=== PATIENT | male | born 1975 | race African-American/Black ===

== ENCOUNTER 2019-09-06 13:22 | Emergency (ER) | payer OTHER ==
[~2019-09-06] VITALS: Ht 182.9 cm; Wt 100.0 kg
[2019-09-06 14:07] VITALS: BP 108/68
--- NOTE | 2019-09-06 14:12 | PHYS DOC ---
Adult General Chief Complaint Chief Complaint: FLU SYMPTOM HPI HPI Patient is a 44 year old male who presents with fever, body aches, cough since Thursday. He states he is not short of breath and has had no vomiting, diarrhea, chest pain, shortness of breath, headache, dizziness, numbness or tingling. He states been taking Tylenol and Mucinex. Last time to Tylenol with Thursday assuming took Mucinex was yesterday. He is a smoker. Denies any other past medical history. Denies any pain or discomfort at this time. Review of Systems Review of Systems Constitutional: fever or chills [] Respiratory: cough or denies shortness of breath [] All other systems were reviewed and found to be within normal limits, except as documented in this note. Allergies Allergies Allergies Coded Allergies Type Severity Reaction Last Updated Verified No Known Drug Allergies 09/06/19 No Physical Exam Physical Exam Constitutional: Well developed, well nourished, no acute distress, non-toxic appearance. [] HENT: Normocephalic, atraumatic, bilateral external ears normal, oropharynx moist, no oral exudates, nose normal. Tympanics pink. [] Eyes: PERRLA, EOMI, conjunctiva normal, no discharge. [] Neck: Normal range of motion, no tenderness, supple, no stridor. [] Cardiovascular:Heart rate regular rhythm, no murmur [] Lungs & Thorax: Bilateral breath sounds clear to auscultation [] Abdomen: Bowel sounds normal, soft, no tenderness, no masses, no pulsatile masses. [] Skin: Warm, dry, no erythema, no rash. [] Back: No tenderness, no CVA tenderness. [] Extremities: No tenderness, no cyanosis, no clubbing, ROM intact, no edema. [] Neurologic: Alert and oriented X 3, normal motor function, normal sensory function, no focal deficits noted. [] Psychologic: Affect normal, judgement normal, mood normal. [] Current Patient Data Vital Signs Vital Signs Date Time Temp Pulse Resp B/P (MAP) Pulse Ox O2 Delivery O2 Flow Rate FiO2 09/06/19 14:07 99.2 93 16 108/68 (81) 94 Room Air 99.2 Lab Values Laboratory Tests Test 09/06/19 14:12 Influenza Type A Antigen Negative (NEGATIVE) Influenza Type B Antigen Negative (NEGATIVE) EKG EKG [] Radiology/Procedures Radiology/Procedures [] Impressions: [facility] [address] [place], [place] [id number] IMAGING REPORT Signed PATIENT: VAISHNAVI DUNN ACCOUNT: [id number] : 1975 LOCATION: ER AGE: 44 SEX: M EXAM STATUS: REG ER ORD. PHYSICIAN: BOLIVAR HOPE APRN REASON: COUGH PROCEDURE: CHEST PA & LATERAL CHEST PA LATERAL History: Cough Comparison: None. Findings: No consolidation or pleural effusion. Normal heart size. No pneumothorax. Impression: 1. No acute cardiopulmonary process. Electronically signed by: Suhas Matthews DO (09/06/2019 2:17 PM) [id number] DICTATED and SIGNED BY: SUHAS MATTHEWS DO DATE: 09/06/19 1417 Course & Med Decision Making Course & Med Decision Making Lungs are clear to auscultation all lobes. Alert and oriented. Speaks in full clear sentences. Skin pink warm and dry. Ambulatory with a steady gait. There is pink without states the swelling. Bilateral tympanic are pink. Patient's temperature in the ED is 99.2 is 93% on room air. His x-ray shows no acute findings. Influenza negative. Dragon Disclaimer Dragon Disclaimer This electronic medical record was generated, in whole or in part, using a voice recognition dictation system. Departure Departure Impression: Primary Impression: Cough Additional Impressions: Generalized body aches Fever Disposition: HOME, SELF-CARE Condition: STABLE Referrals: NO PCP (PCP) Patient Instructions: Cough, Adult, Fever, Adult Additional Instructions: Continue taking Tylenol and Mucinex. Drink plenty of fluids. Take medication as prescribed. Scripts Azithromycin (AZITHROMYCIN TABLET) 500 Mg Tablet 1 TAB PO DAILY for 5 Days, #5 TAB 0 Refills Prov: BOLIVAR HOPE APRN 09/06/19 Methylprednisolone (MEDROL) 4 Mg Tab.ds.pk 1 PKG PO UD, #1 PKG Prov: BOLIVAR HOPE APRN 09/06/19 Problem Qualifiers Additional Impressions: Fever Fever type: unspecified Qualified Codes: R50.9 - Fever, unspecified BOLIVAR HOPE APRN Sep 06, 2019 14:12
--- NOTE | 2019-09-06 14:20 | RAD ---
CHEST PA LATERAL History: Cough Comparison: None. Findings: No consolidation or pleural effusion. Normal heart size. No pneumothorax. Impression: 1. No acute cardiopulmonary process. Electronically signed by: Alexis Zuñiga DO (09/06/2019 2:17 PM) [id number]
[2019-09-06 14:35] LABS: INFLUENZA A PATIENT NEGATIVE (NEGATIVE); INFLUENZA B PATIENT NEGATIVE (NEGATIVE)
[2019-09-06] MEDS ORDERED: METH4TAB2 PO (14:41)
[2019-09-06] MEDS ORDERED: AZIT500T4 PO (14:41)
== END 2019-09-06 15:16 | disposition home or self-care (01) ==
LOC: ER 13:22
DX: R05 Cough (principal); R50.9 Fever, unspecified; M79.10 Myalgia, unspecified site; F17.200 Nicotine dependence, unspecified, uncomplicated
CPT/HCPCS: 71046; 87804; 99285-25

== ENCOUNTER 2020-08-22 10:17 | Emergency (ER) | payer OTHER ==
[~2020-08-22] VITALS: Ht 180.3 cm; Wt 105.0 kg
[~2020-08-22 10:17] MED LIST: AZIT500T4 PO; METH4TAB2 PO
[2020-08-22 10:45] VITALS: BP 126/87
--- NOTE | 2020-08-22 11:02 | PHYS DOC ---
Past Medical History Past Medical History: No Pertinent History (EDI FATIMA APRN) Past Surgical History: No Surgical History (EDI FATIMA APRN) Smoking Status: Current Every Day Smoker Alcohol Use: Occasionally (EDI FATIMA APRN) General Adult EDM: Chief Complaint: BACK PAIN - NO INJURY HPI: HPI: Patient is a 45 year old male who presents to the ED today complaining of mild intermittent low back pain, symptoms began 2 days after he fell down, he states [place]. He states he landed on his buttocks. Denies any loss of consciousness, denies any pain radiating to bilateral lower extremities. Describes the pain as sharp and intermittent worse on certain movements. Denies any loss of bowel/bladder function. (EDI FATIMA APRN) Review of Systems: Review of Systems: Constitutional: Denies fever or chills. [] GI: Denies abdominal pain, nausea, vomiting, bloody stools or diarrhea. [] : Denies dysuria. [] Musculoskeletal: Reports low back pain Integument: Denies rash. [] Neurologic: Denies headache, focal weakness or sensory changes. [] Psychiatric: Denies depression or anxiety. [] (EDI FATIMA APRN) Heart Score: Risk Factors: Risk Factors: DM, Current or recent (<one month) smoker, HTN, HLP, family history of CAD, obesity. Risk Scores: Score 0 - 3: 2.5% MACE over next 6 weeks - Discharge Home Score 4 - 6: 20.3% MACE over next 6 weeks - Admit for Clinical Observation Score 7 - 10: 72.7% MACE over next 6 weeks - Early Invasive Strategies (EDI FATIMA APRN) Allergies: Allergies: Allergies Coded Allergies Type Severity Reaction Last Updated Verified No Known Drug Allergies 09/06/19 No (EDI FATIMA APRN) Physical Exam: PE: Constitutional: Well developed, well nourished, no acute distress, non-toxic appearance. [] Abdomen: Bowel sounds normal, soft, no tenderness, no masses, no pulsatile masses. [] Skin: Warm, dry, no erythema, no rash. [] Back: Diffuse paraspinal muscle tenderness bilateral lumbar spine including some midline lumbar spine tenderness, no CVA tenderness. [] Extremities: No tenderness, no cyanosis, no clubbing, ROM intact, no edema. [] Neurologic: Alert and oriented X 3, normal motor function, normal sensory function, no focal deficits noted. [] Psychologic: Affect normal, judgement normal, mood normal. [] (EDI FATIMA APRN) EKG: EKG: [] (EDI FATIMA APRN) Radiology/Procedures: Radiology/Procedures: []PROCEDURE: CT LUMBAR SPINE WO CONTRAST CT study of the lumbar spine without contrast Clinical indications: Fall with back pain. TECHNIQUE: Noncontrast helical CT scanning of the lumbar spine was performed. Multiplanar 2-D reconstructions were generated. PQRS compliance Statement One or more of the following individualized dose reduction techniques were utilized for this study: 1. Automated exposure control 2. Adjustment of the mA and/or kV according to patient size 3. Use of iterative reconstruction technique COMPARISON: None available. FINDINGS: The transverse processes are intact. No compression fracture or discitis or lytic process or anterolisthesis is evident. No significant degenerative disc space narrowing is seen. There is minimal degenerative endplate spurring throughout the lumbar spine. There is mild diffuse disc protrusion at L4-5. This results in mild AP dimensional spinal canal stenosis. Mild neural foraminal narrowing is seen at this level. There is less prominent diffuse disc protrusion at L3-4. There is mild narrowing of the neural foramina bilaterally at this level. IMPRESSION: No acute compression fracture. Mild diffuse disc protrusion at L3-4 and more prominently at L4-5. Mild spinal canal stenosis at L4-5. Mild neural foraminal narrowing bilaterally at L3-4 and L4-5. Electronically signed by: Stanislav Ceja MD (08/22/2020 11:51 AM) [id number] DICTATED and SIGNED BY: STANISLAV CEJA MD DATE: 08/22/20 [id number] (EDI FATIMA APRN) Course & Med Decision Making: Course & Med Decision Making Pertinent Labs and Imaging studies reviewed. (See chart for details) This is a 45-year-old male patient presented to the ED today with low back pain, symptoms began 2 days after he fell down [place]. Patient has no c auda equina syndrome symptoms. CT of the lumbar spine is negative for any acute findings. Discharge to home. Follow-up with neurosurgery as well as PCP and pain clinic as needed. (EDI FATIMA APRN) Shereen Disclaimer: Shereen Disclaimer: This electronic medical record was generated, in whole or in part, using a voice recognition dictation system. (EDI FATIMA APRN) Departure Departure Impression: Primary Impression: Fall Qualified Codes: W19.XXXA - Unspecified fall, initial encounter Additional Impressions: Low back pain Qualified Codes: M54.5 - Low back pain Protruded lumbar disc Disposition: DC HOME SELF CARE/HOMELESS Condition: STABLE Referrals: NO PCP (PCP) FEDERICO CHARLES MD follow up in one week TUCKER BOCANEGRA MD follow up in one week Patient Instructions: Back Pain, Adult Additional Instructions: You were seen for back pain, your CAT scan of the back is negative for any acute findings. Please follow-up with the specialist provided in 1 to 2 weeks. Scripts Diclofenac Potassium (DICLOFENAC POTASSIUM) 50 Mg Tablet 1 TAB PO BID, #60 TAB 1 Refill Prov: EDI FATIMA APRN 08/22/20 Cyclobenzaprine Hcl (CYCLOBENZAPRINE HCL) 10 Mg Tablet 1 TAB PO TID, #30 TAB Prov: EDI FATIMA APRN 08/22/20 Attending Signature Attending Signature I have reviewed the PA/MILL FEEDER's note and plan of care. I was available for consultation as needed during the patient's visit in the emergency department. I agree with the clinical impression, plan, and disposition. (MAMADOU GARCIA DO) EDI FATIMA APRN Aug 22, 2020 11:02 MAMADOU GARCIA DO Aug 22, 2020 14:50
--- NOTE | 2020-08-22 11:53 | RAD ---
CT study of the lumbar spine without contrast Clinical indications: Fall with back pain. TECHNIQUE: Noncontrast helical CT scanning of the lumbar spine was performed. Multiplanar 2-D reconst ructions were generated. PQRS compliance Statement One or more of the following individualized dose reduction techniques were utilized for this study: 1. Automated exposure control 2. Adjustment of the mA and/or kV according to patient size 3. Use of iterative reconstruction technique COMPARISON: None available. FINDINGS: The transverse processes are intact. No compression fracture or discitis or lytic process o r anterolisthesis is evident. No significant degenerative disc space narrowing is seen. There is mini mal degenerative endplate spurring throughout the lumbar spine. There is mild diffuse disc protrusion at L4-5. This results in mild AP dimensional spinal canal stenosis. Mild neural foraminal narrowing is seen at this level. There is less prominent diffuse disc protrusion at L3-4. There is mild narrowi ng of the neural foramina bilaterally at this level. IMPRESSION: No acute compression fracture. Mild diffuse disc protrusion at L3-4 and more prominently at L4-5. Mild spinal canal stenosis at L4-5 . Mild neural foraminal narrowing bilaterally at L3-4 and L4-5. Electronically signed by: Stanislav Ceja MD (08/22/2020 11:51 AM) [id number]
[2020-08-22] MEDS ORDERED: DICL50TA2 PO (12:14)
[2020-08-22] MEDS ORDERED: CYCL10TA2 PO (12:14)
== END 2020-08-22 12:31 | disposition home or self-care (01) ==
LOC: ER 10:17
DX: M54.5 Low back pain (principal); G89.11 Acute pain due to trauma; M48.061 Spinal stenosis, lumbar region without neurogenic claudication; F17.200 Nicotine dependence, unspecified, uncomplicated; W18.39XA Other fall on same level, initial encounter; Y93.89 Activity, other specified; Y92.89 Other specified places as the place of occurrence of the external cause; Y99.8 Other external cause status
CPT/HCPCS: 72131; 99284-25